=== PATIENT | male | born 1955 | race African-American/Black ===

== ENCOUNTER → 2018-04-03 | Outpatient (CLI) | payer OTHER ==
--- NOTE | ~2018-04-03 | SLE ---
[facility] [address] [place] [address] POLYSOMNOGRAPHY STUDY Name: LACEY BOSSLAURA Aiken Room #: REG [facility]#: [id number] Admission: 04/03/18 Attend Phys: Xander Hammond MD Discharge: Date of : 51 Report #: [id number] THIS REPORT FOR: //name// CC: Xander Carpenter MD DATE OF SERVICE: 04/04/2018 ATTENDING PHYSICIAN: Dr. Clarence Carpenter. The patient is 62 years old who weighs 305 pounds with a BMI of 42.5. The patient's Van Etten score is 11. The patient underwent home sleep study performed at [facility]. Total recording time was 410 minutes. During the night study, the patient had 25 obstructive apneas, 5 central apneas and no mixed apneas and 86 hypopneas. The patient's apnea hypopnea index was 21 per hour with a supine index of 18.5 per hour. Review of nocturnal oximetry study revealed an average oxygen saturation of 90% with a lowest of 74%. 161 minutes were spent in oxygen saturation of less than 90%, which was 39% of the total sleep time. EKG monitoring revealed mean heart rate of 76 beats per minute with a maximum of 113 beats per minute during sleep. IMPRESSION: 1. Moderate sleep apnea-hypopnea syndrome at an AHI of 21 per hour. 2. Moderate to severe nocturnal hypoxia related to obstructive sleep apnea. RECOMMENDATIONS: 1. The patient would benefit from in-lab CPAP titration study. 2. Once optimum CPAP pressure is achieved, then follow up in 4-6 weeks to assess compliance with CPAP and to document clinical improvement. 3. Alternate treatment option would also include home auto Pap titration study. 4. Avoid MEDICINE TECH depressants. 5. Cautioned regarding driving until symptoms of sleep apnea resolve with the above recommendations. <ELECTRONICALLY SIGNED> By: Xander Hammond MD 04/04/18 [id number] Xander Hammond MD /nt
== END ==
LOC: SLEEPLAB 07:51
DX: G47.33 Obstructive sleep apnea (adult) (pediatric) (principal); G47.19 Other hypersomnia; R09.02 Hypoxemia; R06.83 Snoring

== ENCOUNTER → 2018-04-17 | Outpatient (CLI) | payer OTHER ==
--- NOTE | ~2018-04-17 | SLE ---
[facility] [address] [place] [address] POLYSOMNOGRAPHY STUDY Name: BOSSBHARTI C Room #: REG [facility]#: [id number] Admission: 04/17/18 Attend Phys: Xander Hammond MD Discharge: Date of : 51 Report #: [id number] THIS REPORT FOR: //name// CC: Xander CARPENTER DATE OF SERVICE: 04/17/2018 ATTENDING PHYSICIAN: Dr. Clarence Carpenter. The patient is a 62-year-old who weighs 307 pounds and is 71 inches tall with a BMI of 42.2. The patient had a home sleep study and was found to have moderate MONA at an AHI of 21 per hour. The patient also had moderate to severe nocturnal hypoxia related to MONA. The patient returns for in-lab CPAP titration study. During the night study, the patient spent 452 minutes in bed and slept for 322 minutes with a low sleep efficiency of 71%. Sleep latency was 1.8 minutes, which was short and a REM latency of 48 minutes, which was short as well. Overall, sleep architecture showed normal stage 1 sleep, increased stage 2 sleep, absent slow wave and slightly reduced REM sleep, which was 17% of the total sleep time. The patient's EKG monitoring revealed an average heart rate of 64 beats per minute. No sustained arrhythmias were observed. No clinically significant PLMS observed. The patient was started on CPAP at a pressure of 5 cm water and titrated up to 11 cm water. At the final pressure, the patient slept for 190 minutes. The patient had 37 minutes of REM sleep and supine sleep was observed as well. The patient's AHI was reduced to 1.9 per hour and oxygen saturation remained above 90%. IMPRESSION: 1. Moderate sleep apnea diagnosed by previous sleep study. 2. No clinically significant periodic limb movements. RECOMMENDATIONS: 1. CPAP at 11 cm water completely eliminated the patient's sleep apnea and should be used on a nightly basis. 2. Follow up in 4-6 weeks to assess compliance with CPAP and to document clinical improvement. 3. Weight loss is strongly advised. 4. Avoid [employer] depressants. [facility] [address] [place] [address] POLYSOMNOGRAPHY STUDY Name: BHARTI BOSS Room #: REG [facility]#: [id number] Admission: 04/17/18 Attend Phys: Xander Hammond MD Discharge: Date of : 51 Report #: [id number] 5. Cautioned regarding driving until symptoms of sleep apnea resolved with the use of CPAP. <ELECTRONICALLY SIGNED> By: Xander Hammond MD 04/20/18 [id number] Xander Hammond MD /nt
== END ==
LOC: SLEEPLAB 04-16 10:33
DX: G47.33 Obstructive sleep apnea (adult) (pediatric) (principal)

== ENCOUNTER → 2019-07-25 | Outpatient (CLI) | payer MEDICARE | LOC: SJCVC 11:25 | DX: R06.02 Shortness of breath (principal); I11.0 Hypertensive heart disease with heart failure; I50.32 Chronic diastolic (congestive) heart failure; E78.5 Hyperlipidemia, unspecified; G47.33 Obstructive sleep apnea (adult) (pediatric); E66.9 Obesity, unspecified; E78.00 Pure hypercholesterolemia, unspecified; Z79.899 Other long term (current) drug therapy; Z95.1 Presence of aortocoronary bypass graft; Z99.89 Dependence on other enabling machines and devices ==

== ENCOUNTER → 2019-07-25 | Outpatient (CLI) | payer MEDICARE | LOC: SJCVC 10:33 | DX: I11.0 Hypertensive heart disease with heart failure (principal); I50.32 Chronic diastolic (congestive) heart failure; E78.5 Hyperlipidemia, unspecified; G47.33 Obstructive sleep apnea (adult) (pediatric); Z99.89 Dependence on other enabling machines and devices; Z79.899 Other long term (current) drug therapy ==

== ENCOUNTER → 2020-02-15 | Outpatient (CLI) | payer MEDICARE | LOC: SJCVC 13:25 | PROVIDERS: ATTEND Internal Medicine | DX: R94.31 Abnormal electrocardiogram [ECG] [EKG] (principal); I11.9 Hypertensive heart disease without heart failure; I50.32 Chronic diastolic (congestive) heart failure; E78.5 Hyperlipidemia, unspecified; G47.33 Obstructive sleep apnea (adult) (pediatric); E78.00 Pure hypercholesterolemia, unspecified; Z99.89 Dependence on other enabling machines and devices ==

== ENCOUNTER → 2020-08-22 | Outpatient (CLI) | payer OTHER | LOC: SJCVC 10:23 | PROVIDERS: ATTEND Internal Medicine | DX: R94.31 Abnormal electrocardiogram [ECG] [EKG] (principal); I11.0 Hypertensive heart disease with heart failure; I50.32 Chronic diastolic (congestive) heart failure; E78.5 Hyperlipidemia, unspecified; G47.33 Obstructive sleep apnea (adult) (pediatric); E78.00 Pure hypercholesterolemia, unspecified; E66.9 Obesity, unspecified; H40.9 Unspecified glaucoma; Z99.89 Dependence on other enabling machines and devices; Z79.899 Other long term (current) drug therapy; Z87.891 Personal history of nicotine dependence; Z72.89 Other problems related to lifestyle ==

== ENCOUNTER → 2021-02-27 | Outpatient (CLI) | payer OTHER | LOC: SJCVC 11:27 | PROVIDERS: ATTEND Internal Medicine | DX: I11.0 Hypertensive heart disease with heart failure (principal); I50.32 Chronic diastolic (congestive) heart failure; E78.5 Hyperlipidemia, unspecified; G47.33 Obstructive sleep apnea (adult) (pediatric); E78.00 Pure hypercholesterolemia, unspecified; F17.200 Nicotine dependence, unspecified, uncomplicated; Z99.89 Dependence on other enabling machines and devices; Z79.899 Other long term (current) drug therapy; Z72.89 Other problems related to lifestyle ==

== ENCOUNTER → 2021-05-11 | Outpatient (CLI) | payer OTHER | LOC: RAD 08:41 | PROVIDERS: ATTEND Nurse Practitioner | DX: M54.12 Radiculopathy, cervical region (principal); M25.78 Osteophyte, vertebrae ==